=== PATIENT | male | born 1975 | race Caucasian/White ===

== ENCOUNTER 2017-04-15 09:34 | Day surgery (SDC) | payer OTHER ==
[~2017-04-15] VITALS: Ht 175.3 cm; Wt 97.0 kg
[2017-04-15] VITALS (8 sets, daily range): BP systolic 117–138; BP diastolic 66–94; PULSE 50–105; RESP 8–19; Ht 175.3 cm; Wt 97.0 kg
[~2017-04-15 09:34] MED LIST: ATOR40TA68 PO; BENA1TAB13 PO; CEFAZOLIN 1 GM INJ ONE; PANT40TA3 PO
[2017-04-15] MEDS ORDERED: BENA20TA48 PO (10:52)
[2017-04-15] MEDS ORDERED: ASPI81TA3 PO (10:53)
[2017-04-15] MEDS ORDERED: OMEP20CA16 PO (10:54)
[2017-04-15] MEDS ORDERED: LIDOCAINE 2% (SDV) 5 ML INJ ONE (13:45)
[2017-04-15] MEDS ORDERED: NEOSTIGMINE 3 MG/3 ML SYRINGE ONE (13:45)
[2017-04-15] MEDS ORDERED: GLYCOPYRROLATE 1 MG INJ ONE (13:45)
[2017-04-15] MEDS ORDERED: MIDAZOLAM 1 MG/ML 2 ML INJ ONE (13:45)
[2017-04-15] MEDS ORDERED: PROPOFOL 20 ML ONE (13:45)
[2017-04-15] MEDS ORDERED: ROCURONIUM 50 MG INJ ONE (13:45)
[2017-04-15] MEDS ORDERED: FENTAnyl 50 MCG/ML VIAL ONE (13:45)
[2017-04-15] MEDS ORDERED: DEXAMETHASONE 4 MG/ML 1 ML INJ ONE (13:46)
[2017-04-15] MEDS ORDERED: ONDANSETRON 4 MG INJ ONE (13:46)
[2017-04-15] MEDS ORDERED: SUGAMMADEX SODIUM 200 MG/2 ML VIAL IV ONE (13:51)
[2017-04-15] MEDS ORDERED: ROPIVACAINE 0.5 % 30 ML VIAL ONE (14:18)
[2017-04-15] MEDS ORDERED: POVIDONE IODINE 10% 28.4 GM OINT ONE (14:18)
[2017-04-15] MEDS ORDERED: POLYMYXIN/BACITRACIN 1L IRRIG ONE (14:20)
--- NOTE | 2017-04-15 15:54 | OPPN ---
Date/Time of Note Date/Time of Note DATE: 04/15/17 TIME: 15:52 Operative Report Preoperative Diagnosis Left hindfoot retained hardware s/p previous subtalar fusion. Postoperative Diagnosis Same Operation/Procedure Performed Left hindfoot hardware removal (screws x2) Provider: NAIN YIN MD assistant office manager: DANK SALMON MD Anesthesia Type: general Estimated blood loss: 0 - 10 ml's Transfusion Required: no Specimen: none Grafts/Implants: none Complications: no NAIN YIN MD Apr 15, 2017 15:53
[2017-04-15] MEDS ORDERED: SOD CHLORIDE 0.9% 1,000 ML IV SCH (15:55)
[2017-04-15] MEDS ORDERED: DIPHENHYDRAMINE 50 MG INJ IV PRN (16:00)
[2017-04-15] MEDS ORDERED: FENTAnyl 50 MCG/ML VIAL IV PRN ×3 (16:00→16:30)
[2017-04-15] MEDS ORDERED: OXYCODONE/ACETAMINOPHEN (5/325) TAB PO PRN ×4 (16:00)
[2017-04-15] MEDS ORDERED: morphine (1 MG/ML) 10ML SYRINGE IV PRN ×3 (16:00)
[2017-04-15] MEDS ORDERED: ONDANSETRON 4 MG INJ IV PRN ×2 (16:00)
[2017-04-15] MEDS ORDERED: EPHEDrine SULFATE 50 MG/5 ML SYG IV PRN (16:00)
[2017-04-15] MEDS ORDERED: MIDAZOLAM 1 MG/ML 2 ML INJ IV PRN (16:00)
[2017-04-15] MEDS ORDERED: HYDROmorphONE (0.2 MG/ML) 10ML SYG IV PRN ×3 (16:00)
[2017-04-15] MEDS ORDERED: hydrALAzine 20 MG INJ IV PRN (16:00)
[2017-04-15] MEDS ORDERED: ATROPINE 1 MG/10 ML SYRINGE IV PRN (16:00)
[2017-04-15] MEDS ORDERED: morphine 2 MG INJ IV PRN (16:00)
[2017-04-15] MEDS ORDERED: LABETALOL HCL 20MG INJ IV PRN (16:00)
[2017-04-15] MEDS ORDERED: MEPERIDINE 25 MG INJ IV PRN (16:00)
--- NOTE | 2017-04-15 16:26 | OPR ---
DATE OF OPERATION: 04/15/2017 PREOPERATIVE DIAGNOSIS: Status post subtalar fusion with 2 screws, now healed. POSTOPERATIVE DIAGNOSES: 1. Status post subtalar fusion with 2 screws, now healed. 2. Painful screws in left heel. PROCEDURE: 1. Removal of two 7.3 AO cannulated screws from the left calcaneus after subtalar fusion. 2. Use of fluoroscopy to identify the screw location and verify removal. 3. Live fluoroscopy to verify that the subtalar joint is completely fused. SURGEON: Dr. Martinez Wilson. VOLLEYBALL ASSISTANT COACH: Dr. Louis Santiago. ANESTHESIA: General. TOURNIQUET TIME: 14 minutes. OPERATIVE PROCEDURE: Patient taken to the operating room and placed supine under satisfactory general anesthesia, administered 2 g of Ancef intravenously. The patient was rolled in the right lateral decubitus position. Secured with shepherd bag and were carefully padded. The left leg was prepped and draped in the usual manner. The fluoroscope was brought in. We identified our previous incision, a small incision was made through the previous one. Dissection carried down subcutaneous tissue. The proximal screw was identified. Guide pin for the 7.30 cannulated screw was inserted and the screw was removed. The incision was enlarged slightly and the more distal screw was identified and a guide pin was inserted and the screw removed. Wounds irrigated repeatedly with antibiotic solution. Final fluoroscopic views in AP and lateral position showed good position and alignment of the fusion. A live fluoroscopic view showed no subtalar motion. Motion through the transverse tarsal joints only. Subcutaneous tissue was then closed with 3-0 dyed Vicryl and 4-0 black nylon. A compression dressing with a CHEL stocking was applied, as well as a CAM walker boot and the patient brought to recovery in stable condition. After the procedure, sponge, needle count was correct. Patient tolerated procedure well. RIVERBOAT CAPTAIN ORTHOPEDIC SURGEON: During the procedure and employment assistant orthopedic surgeon was used to facilitate manipulating the foot and ankle to facilitate helping with screw removal without a skilled rn medical surgical this could not be done properly and should be reimbursed. Dictated By: Martinez Wilson MD /[email or web address] /Document#: [id number] JENNIFER
--- NOTE | 2017-04-15 16:33 | RADRPT ---
PROCEDURE: Intraoperative imaging of the left foot with fluoroscopy. CLINICAL INDICATION: Left foot pain. Hardware removal. Intraoperative. TECHNIQUE: 6 images of the left foot were obtained in the operating room with an image intensifier . No radiologist was in attendance. Fluoroscopy time is 0.2 minutes. COMPARISON: 07/02/2016. FINDINGS: Images demonstrate removal of the 2 cannulated screws from the left hind foot. IMPRESSION: 1. Intraoperative imaging of the left foot. RPTAT: QQ .Jacek Peterson MD, Date Time Electronically viewed and signed by .Jacek Peterson MD, on 04/15/2017 16:32 .R/
== END 2017-04-15 17:38 | disposition home or self-care (01) ==
LOC: SDS 09:34
PROVIDERS: ATTEND Orthopaedic Surgery
DX: T84.84XA Pain due to internal orthopedic prosthetic devices, implants and grafts, initial encounter (principal); Y83.8 Other surgical procedures as the cause of abnormal reaction of the patient, or of later complication, without mention of misadventure at the time of the procedure
CPT/HCPCS: 20680; 73630; J0690; J1100; J2250; J2405; J2795; J3010; J2710